=== PATIENT | female | born 1975 | race American Indian/Alaskan Native ===

== ENCOUNTER 2017-02-02 10:51 | Outpatient (CLI) | payer BC ==
[2017-02-02 11:20] LABS: Basophils % (Auto) 0.6 % (0.0-1.8); Hematocrit 37.1 % (30.3-42.9); Mean Corpuscular HGB Conc 32 % (30-34); Mean Corpuscular Hemoglobin 28 pg (28-32); Mean Corpuscular Volume 85 fl (79-97); Platelet Count 292 K/mm3 (140-440); Red Blood Count 4.38 M/mm3 (3.65-5.03); Red Cell Distribution Width 15.9 % (13.2-15.2); White Blood Count 8.5 K/mm3 (4.5-11.0)
[2017-02-02 11:37] LABS: Alanine Aminotransferase 15 units/L (7-56); Albumin 4.1 g/dL (3.9-5); Albumin/Globulin Ratio 1.2 %; Alkaline Phosphatase 61 units/L (35-129); Anion Gap 17 mmol/L; BUN/Creatinine Ratio 18.18; Bilirubin,Total 0.2 mg/dL (0.1-1.2); Blood Urea Nitrogen 20 mg/dL (7-17); Calcium 9.2 mg/dL (8.4-10.2); Carbon Dioxide 25 mmol/L (22-30); Chloride 102.7 mmol/L (98-107); Cholesterol 172 mg/dL (50-199); Glucose 101 mg/dL (65-100); HDL Cholesterol 50 mg/dL (40-59); LDL Cholesterol,Direct 96 mg/dL (50-130); Potassium 4.4 mmol/L (3.6-5.0); Sodium 140 mmol/L (137-145); Total Protein 7.4 g/dL (6.3-8.2); Triglycerides 131 mg/dL (2-149)
[2017-02-06 07:34] LABS: Vitamin D, 25-OH, Total 24 ng/mL (30-100)
== END 2017-02-02 10:52 | disposition home or self-care (01) ==
LOC: LAB 10:51
PROVIDERS: ATTEND Physician Assistant
DX: Z01.83 Encounter for blood typing (principal); D50.9 Iron deficiency anemia, unspecified; R94.4 Abnormal results of kidney function studies; E55.9 Vitamin D deficiency, unspecified; E78.00 Pure hypercholesterolemia, unspecified
CPT/HCPCS: 36415; 80053; 80061; 82306; 85025; 86900; 86901

== ENCOUNTER 2017-12-18 14:55 | Outpatient (CLI) | payer BC ==
[2017-12-18 15:29] LABS: Alanine Aminotransferase 12 units/L (7-56); Albumin 3.8 g/dL (3.9-5); BUN/Creatinine Ratio 19; Blood Urea Nitrogen 17 mg/dL (7-17); Hemolysis Index 15
== END 2017-12-18 14:56 | disposition home or self-care (01) ==
LOC: LAB 14:55
DX: N18.3 Chronic kidney disease, stage 3 (moderate) (principal)
CPT/HCPCS: 36415; 80053

== ENCOUNTER 2019-04-10 14:46 | Outpatient (CLI) | payer BC ==
[2019-04-10 15:51] LABS: Alanine Aminotransferase 15 units/L (7-56); Albumin 3.7 g/dL (3.9-5); BUN/Creatinine Ratio 13; Blood Urea Nitrogen 13 mg/dL (7-17); Calcium 8.8 mg/dL (8.4-10.2); Hemolysis Index 4; Iron 58 ug/dL (37-170)
[2019-04-10 16:04] LABS: Creatinine,Urine 147.1 mg/dL (0.1-20.0); Protein/Creatinine Ratio,Urine 0.07
[2019-04-14 14:56] LABS: Vitamin D, 25-OH, D2 8 ng/mL
== END 2019-04-10 14:47 | disposition home or self-care (01) ==
LOC: LAB 14:46
PROVIDERS: ATTEND Nurse Practitioner Gerontology
DX: D50.9 Iron deficiency anemia, unspecified (principal); N18.3 Chronic kidney disease, stage 3 (moderate); E55.9 Vitamin D deficiency, unspecified
CPT/HCPCS: 36415; 80053; 82306; 82570; 82728; 83540; 84156